=== PATIENT | male | born 1940 | race Caucasian/White ===

== ENCOUNTER 2018-04-28 07:23 | Day surgery (SDC) | payer BC ==
[~2018-04-28] VITALS: Ht 182.9 cm; Wt 102.1 kg
[~2018-04-28 07:23] MED LIST: ASPI325; ASPI325 PO; CALCAVITD PO; GLUCHON PO; GLUCOSAMIN PO; HYDACE5 PO; MULVITMIND PO; NAPR500 PO; PRIM50 PO; SAW PALMETTO PO; [UNRECOGNIZED DRUG - OTHER] PO
== END 2018-04-28 22:39 | disposition home or self-care (01) ==
LOC: ORSCMMR 07:23 → ORD 09:00 → ORSCMMR 22:39
PROVIDERS: Surgery
PROC: 0YU50JZ Supplement Right Inguinal Region with Synthetic Substitute, Open Approach (ICD-10-PCS; principal; 2018-04-28 09:00)
DX: K40.90 Unilateral inguinal hernia, without obstruction or gangrene, not specified as recurrent (principal); Z87.891 Personal history of nicotine dependence
CPT/HCPCS: C1781; J1100; J2250; J2405; J3010; J7120

== ENCOUNTER 2019-11-11 11:16 | Day surgery (SDC) | payer BC ==
[~2019-11-11] VITALS: Ht 182.9 cm; Wt 101.3 kg
--- NOTE | 2019-11-11 12:05 | NUR ---
Ambulatory in Day Surgery History, Chart, Medications and Allergies reviewed before start of procedure.Lungs clear T/O to Auscultation. Patient confirms NPO status and agrees with scheduled surgery. Patient reports completing Chlorhexadine shower X2 prior to admission to hospital.Surgical site prepped with 2% Chlorhexidine cloth wipe.NOSYN AND PERIDEX DONE PER ORTHO PROTOCOL.
--- NOTE | 2019-11-11 18:58 | NUR ---
pt arrived to room 216 from pacu s/p l total knee dressing cdi with moon wrap and polar pack pt can wiggle toes rates pain 0/10 stated that he can feel the ice pack on his knee denies n/v jeloo and juice given will order reg diet
[2019-11-12 04:51] LABS: BASOPHILS ABSOLUTE AUTO 0.03 K/mm3 (0.00-0.23); BASOPHILS PERCENT AUTO 0 % (0-2); EOSINOPHILS ABSOLUTE AUTO 0.14 K/mm3 (0.00-0.68); EOSINOPHILS PERCENT AUTO 2 % (0-6); Hematocrit 39.4 % (37.0-53.0); Hemoglobin 13.6 g/dL (13.5-17.5); IMMATURE GRAN ABSOLUTE AUTO 0.04 K/mm3 (0.00-0.10); IMMATURE GRAN PERCENT AUTO 0 % (0-1); LYMPHOCYTES ABSOLUTE AUTO 1.34 K/mm3 (0.84-5.20); LYMPHOCYTES PERCENT AUTO 14 % (21-46); MONOCYTES ABSOLUTE AUTO 0.79 K/mm3 (0.16-1.47); MONOCYTES PERCENT AUTO 8 % (4-13); Mean Corpuscular HGB 32.5 pg (26.0-34.0); Mean Corpuscular HGB Conc 34.5 g/dL (31.5-36.5); Mean Corpuscular Volume 94 fL (80-100); Mean Platelet Volume 9.9 fL (9.1-12.4); NEUTROPHILS ABSOLUTE AUTO 7.07 K/mm3 (1.96-9.15); NEUTROPHILS PERCENT AUTO 75 % (41-73); Platelet Count 141 K/mm3 (150-400); RDW Coefficient Variation 12.9 % (11.7-14.2); Red Blood Cell Count 4.19 M/mm3 (4.30-5.90); White Blood Cell Count 9.41 K/mm3 (4.00-11.30)
[2019-11-12 05:12] LABS: Magnesium, Blood 1.8 mg/dL (1.6-2.4)
[2019-11-12 05:13] LABS: Anion Gap 5 mmol/L (6-16); Blood Urea Nitrogen 24 mg/dL (8-24); CO2, Blood 25 mmol/L (21-32); Calcium, Blood 8.4 mg/dL (8.5-10.1); Chloride, Blood 107 mmol/L (98-108); Creatinine, Blood 1.09 mg/dL (0.60-1.20); Glomerular Filtration Rate >60 (60-); Glucose, Blood 87 mg/dL (70-99); Potassium, Blood 4.1 mmol/L (3.5-5.5); Sodium, Blood 137 mmol/L (136-145)
[2019-11-12] MEDS ORDERED: ASPI325EC PO (07:25)
[2019-11-12] MEDS ORDERED: ROXICODONE5 MG PO (07:25)
[2019-11-12] MEDS ORDERED: PROM25 PO (07:26)
--- NOTE | 2019-11-12 12:32 | NUR ---
DISCHARGE SUMMARY PT A&OX4, VSS, LEFT FLOOR VIA WC TO GO HOME WITH , WITH ALL PERSONAL POSSESSIONS INCLUDING 3 AQUACEL DRESSINGS; PT REP SCRIPTS FILLED AND MEDS AT HOME ALREADY. DC INSTRUCTIONS PROVIDED. PT AND REP UNDERSTANDING THOSE INSTRUCTIONS INCLUDING WHEN TO CALL SURGEON, 2 WK FU WITH SG, TED[place]or[facility]/POLAR SUKHJINDER/AMBULATION WITH FWW, AQUACEL DRESSING CHANGES. IV DC'D.
== END 2019-11-12 14:30 | disposition home or self-care (01) ==
LOC: ORSCMMR 11:16 → ORD 13:00 → SURS 17:30 → ORSCMMR 11-12 14:30
PROVIDERS: Orthopaedic Surgery
PROC: 0SRD0J9 Replacement of Left Knee Joint with Synthetic Substitute, Cemented, Open Approach (ICD-10-PCS; principal; 2019-11-11 13:00)
PROC: 8E0YXBZ Computer Assisted Procedure of Lower Extremity (ICD-10-PCS; principal; 2019-11-11 13:00)
DX: M17.12 Unilateral primary osteoarthritis, left knee (principal); Z79.82 Long term (current) use of aspirin; Z79.899 Other long term (current) drug therapy
CPT/HCPCS: 36415; 73560-LT; 80048; 83735; 85025; 97110; 97116; 97162; 97530; A9270-GY; C1713; C1776; J0171; J0735; J1885; J2250; J2704; J2795; J3370; J7120

== ENCOUNTER 2021-10-31 06:33 | Day surgery (SDC) | payer BC ==
[~2021-10-31] VITALS: Ht 182.9 cm; Wt 105.0 kg
[~2021-10-31 06:33] MED LIST changes: +ASPI325EC PO; +PROM25 PO; +ROXICODONE5 MG PO
== END 2021-10-31 08:47 | disposition home or self-care (01) ==
LOC: ORSCSDS 06:33
PROVIDERS: Surgery
PROC: 0DBM8ZX Excision of Descending Colon, Via Natural or Artificial Opening Endoscopic, Diagnostic (ICD-10-PCS; principal; 2021-10-31 08:00)
DX: Z12.11 Encounter for screening for malignant neoplasm of colon (principal); D12.4 Benign neoplasm of descending colon; K57.30 Diverticulosis of large intestine without perforation or abscess without bleeding; Z80.0 Family history of malignant neoplasm of digestive organs; Z86.010 Personal history of colon polyps; E78.5 Hyperlipidemia, unspecified; G25.0 Essential tremor; Z79.899 Other long term (current) drug therapy; Z87.891 Personal history of nicotine dependence
CPT/HCPCS: 88305; J2704; J7120